=== PATIENT | female | born 1990 ===

== ENCOUNTER 2018-04-17 19:24 | Emergency (ER) | payer MEDICAID ==
[2018-04-17 19:49] VITALS: BP 125/83
--- NOTE | 2018-04-17 20:53 | UC ---
Abdominal Pain Female HPI - HPI Summary HPI Summary: INTERMITTENT PAIN IN THE RIGHT LOWER QUADRANT FOR THE PAST MONTH OR SO. PATIENT IS HERE FROM [place] PURSUING POSTDOCTORAL STUDIES AT [facility]. WHEN SHE ARRIVED HERE A COUPLE OF MONTHS AGO SHE DISCOVERED SHE WAS . IS BACK IN [place]. HAS AN APPOINTMENT TO SEE SHELLEY CALDWELL WITH [facility] NEXT WEEK. IS NOT TAKING A VITAMIN. IS CONCERNED ABOUT A HERNIA. THIS IS PATIENT'S SECOND . SHE MISCARRIED AT 16 WEEKS APPROXIMATELY ONE YEAR AGO. DENIES LOSS OF FLUID PER VAGINA. NO BLEEDING. THINKS SHE FEELS BABY MOVING ALREADY. NO URINARY SX. - History of Current Complaint Chief Complaint: UCAbdominalPain Stated Complaint: ABD PAIN,4MOS PREG Time Seen by Provider: 04/17/18 19:46 Hx Obtained From: Patient Onset/Duration: Gradual Onset, Lasting Weeks, Still Present Timing: Intermittent Episodes Lasting: Severity Initially: Moderate Severity Currently: Moderate Pain Intensity: 6 Pain Scale Used: 0-10 Numeric Radiates: No Character: Sharp Aggravating Factor(s): Other: - TOUCH Associated Signs and Symptoms: Negative: Diaphoresis, Fever, Back Pain, Constipation, Blood in Stool, Urinary Symptoms, Decreased Appetite, Vaginal Bleeding, Vaginal Discharge, Nausea, Vomiting, Diarrhea Allergies/Adverse Reactions: Allergies Allergy/AdvReac Type Severity Reaction Status Date / Time No Known Allergies Allergy Verified 04/17/18 19:49 Home Medications: Home Medications Folic Acid 1 mg PO 04/17/18 [History] PMH/Surg Hx/FS Hx/Imm Hx Other History Of: Hepatitis C - Surgical History Surgical History: Yes Surgery Procedure, Year, and Place: anal fissure - Family History Known Family History: Positive: Hypertension - Social History Alcohol Use: None Substance Use Type: None Smoking Status (MU): Never Smoked Tobacco Review of Systems Constitutional: Negative Skin: Rash Respiratory: Negative Cardiovascular: Negative Gastrointestinal: Abdominal Pain Genitourinary: Negative All Other Systems Reviewed And Are Negative: Yes Physical Exam Triage Information Reviewed: Yes Appearance: Well-Appearing, No Pain Distress, Well-Nourished Vital Signs: Initial Vital Signs Temp 97.9 F 04/17/18 19:42 Pulse 99 04/17/18 19:42 Resp 18 04/17/18 19:42 BP 125/83 04/17/18 19:42 Pulse Ox 98 04/17/18 19:42 Vital Signs Reviewed: Yes Eyes: Positive: Conjunctiva Clear ENT: Positive: Hearing grossly normal Neck: Positive: Supple Respiratory: Positive: No respiratory distress, No accessory muscle use Cardiovascular: Positive: Pulses Normal Abdomen Description: Positive: Nontender, Soft, Other: - GRAVID. NO INGUINAL HERNIA APPRECIATED. NO RLQ TENDERNESS. Musculoskeletal: Positive: ROM Intact, No Edema Neurological: Positive: Alert Psychological: Positive: Age Appropriate Behavior Skin: Positive: Other - 1.5CM AREA OF ERYTHEMA SURROUNDING INGROWN HAIR AT AREA OF TENDERNESS RIGHT LOWER ABDOMEN. PUBIC AREA IS SHAVED. Abd Pain Female Course/Dx - Differential Dx/Diagnosis Provider Diagnoses: FOLLICULITIS Discharge - Sign-Out/Discharge Documenting (check all that apply): Patient Departure - Discharge Plan Condition: Stable Disposition: HOME Prescriptions: Mupirocin 2% OINT* [Bactroban 2 % Oint*] 1 applic TOPICAL BID #1 tube [id number]/Iron/Folic/Dha [ Formula-Dha Softgel] 1 cap PO DAILY # 30 capsule Patient Education Materials: Folliculitis (ED) [facility] - If Needed Elva Caldwell CNM [Certified Nurse Custom Miller] - (KEEP YOUR APPT ON THURSDAY) Additional Instructions: YOUR PAIN SEEMS TO BE ORIGINATING FROM AN INFECTED HAIR FOLLICLE. USE THE ANTIBIOTIC OINTMENT 2-3 TIMES DAILY TOPICALLY. KEEP THE AREA COOL CLEAN AND DRY. TRY TO WEAR CLOTHES THAT DO NOT CHAFE THE AREA. DO NOT SHAVE. WILL HOLD OFF ON ORAL ANTIBIOTICS AT PRESENT. KEEP YOUR OB APPOINTMENT NEXT THURSDAY AND BE SURE TO HAVE THE AREA REEVALUATED AT THAT TIME. NO IBUPROFEN DURING . OKAY TO USE TYLENOL IF NEEDED FOR DISCOMFORT. PLEASE START TAKING A VITAMIN WITH DHA. PRESCRIPTION HAS BEEN SENT TO THE PHARMACY. YOUR URINE TODAY HAD A LITTLE BIT OF BACTERIA BUT THIS IS LIKELY A CONTAMINANT. WE WILL SEND IT FOR CULTURE AND CALL YOU IF YOU NEED TO BE TREATED. HEART TONES WERE STRONG AND STEADY. GO TO THE ED WITHOUT FAIL IF YOU HAVE ANY VAGINAL BLEEDING, LOSS OF FLUID, BABY STOPS MOVING, ABDOMINAL PAIN/CRAMPING, FEVER OR ANY OTHER CONCERNING SYMPTOMS. - Billing Disposition and Condition Condition: STABLE Disposition: Home
== END 2018-04-17 20:49 | disposition home or self-care (01) ==
LOC: UCEAST 19:24
DX: O26.899 Other specified pregnancy related conditions, unspecified trimester (principal); Z3A.00 Weeks of gestation of pregnancy not specified; L73.9 Follicular disorder, unspecified
CPT/HCPCS: 81003; 87086; 99202; G0463

== ENCOUNTER 2018-07-13 16:46 | Emergency (ER) | payer OTHER, MEDICAID ==
[2018-07-13 18:19] VITALS: BP 108/54
--- NOTE | 2018-07-13 18:42 | UC ---
Throat Pain/Nasal [place] HPI - HPI Summary HPI Summary: 27 year old female 27 weeks presents with 5 day history of left side frontal and maxillary sinus pain, sore throat, subjective fever, and chills. States yesterday she started with a non-productive cough. She also reports tender, erythematous lesions to her lower abdomen for several days. Denies ear pain or drainage, nasal discharge, chest pain, shortness of breath, abdominal pain, nausea, vomiting, dysuria, vaginal bleeding or discharge. - History of Current Complaint Chief Complaint: UCGeneralIllness Stated Complaint: SORE THROAT,FEVER,DIZZY Time Seen by Provider: 07/13/18 18:14 Hx Obtained From: Patient ?: Yes Onset/Duration: Gradual Onset, Lasting Days Pain Intensity: 0 Cough: Nonproductive Associated Signs & Symptoms: Positive: Sinus Discomfort, Fever. Negative: Dysphagia, Nasal Discharge, Vomiting - Allergies/Home Medications Allergies/Adverse Reactions: Allergies Allergy/AdvReac Type Severity Reaction Status Date / Time No Known Allergies Allergy Verified 07/13/18 17:03 Home Medications: Home Medications Acetaminophen TAB* [Tylenol TAB*] 650 mg PO Q6H PRN 07/13/18 [History Confirmed 07/13/18] PMH/Surg Hx/FS Hx/Imm Hx Endocrine History: Hypothyroidism Other History Of: Hepatitis C - Surgical History Surgical History: Yes Surgery Procedure, Year, and Place: D&C, anal fissure - Family History Known Family History: Positive: Hypertension - Social History Occupation: Student Lives: With Family Alcohol Use: None Substance Use Type: None Smoking Status (MU): Never Smoked Tobacco Review of Systems Constitutional: Fever - subjective, Chills Skin: Other - See HPI ENT: Sore Throat, Sinus Pain/Tenderness Respiratory: Cough Cardiovascular: Negative Gastrointestinal: Negative Genitourinary: Negative Is Patient Immunocompromised?: No All Other Systems Reviewed And Are Negative: Yes Physical Exam Triage Information Reviewed: Yes Appearance: Well-Appearing, No Pain Distress, Well-Nourished Vital Signs: Initial Vital Signs Temp 99.0 F 07/13/18 16:53 Pulse 112 07/13/18 16:53 Resp 18 07/13/18 16:53 BP 165/90 07/13/18 16:53 Pulse Ox 100 07/13/18 16:53 Vital Signs Reviewed: Yes Eyes: Positive: Conjunctiva Clear. Negative: Discharge ENT: Positive: Pharyngeal erythema - Mild with cobblestoning, Nasal congestion, TMs normal, Sinus tenderness - left frontal and maxillary tenderness, Uvula midline. Negative: Nasal drainage, Tonsillar swelling, Tonsillar exudate Neck: Positive: Supple, Nontender, No Lymphadenopathy Respiratory: Positive: Lungs clear, Normal breath sounds, No respiratory distress Cardiovascular: Positive: RRR, No Murmur, Tachycardia Neurological: Positive: Alert Skin: Positive: Other - 2 areas of erythema with mild induration approximately 2 cm in diameter to right and left lower abdomen. Tender to palpation. No fluctuance or drainage noted. Diagnostics - Laboratory Diagnostic Studies Completed/Ordered: rapid strep negative, POC UA normal Throat Pain/Nasal Course/Dx - Course Course Of Treatment: 27 year old female 27 weeks with 5 day history of left side frontal and maxillary sinus pain, sore throat, subjective fever, chills, and on-productive cough as well as tender, erythematous lesions to her lower abdomen. Her history and exam are consistent with an acute sinusitis. The lesions appear to be a folliculitis. Consulted with Yane Stone, [employer]CH[employer], at patient request and she agrees with treating patient with a course of Keflex for the folliculitis. Recommend symptomatic treatment for sinusitis with acetaminophen, OTC Sudafed, and saline rinses. She has appointment with OB, Dr. Kelly already scheduled for tomorrow and she is to keep this appointment. Warning symptoms reviewed with patient. Verbalizes understanding and agrees with POC. - Differential Dx/Diagnosis Provider Diagnoses: sinusitis, folliculitis - Physician Notification/Consults Discussed Patient Care With: Yane Stone Time Discussed With Above Provider: 18:45 Instructed by Provider To: Other - Safe to prescribe cephalexin. Patient to follow up with in the office tomorrow with Dr. Kelly as scheduled. Discharge - Sign-Out/Discharge Documenting (check all that apply): Patient Departure All imaging exams completed and their final reports reviewed: No Studies - Discharge Plan Condition: Stable Disposition: HOME Prescriptions: Cephalexin CAP* [Keflex 500 CAP*] 500 mg PO TID 7 Days #21 cap Patient Education Materials: Sinusitis (ED), Folliculitis (ED) Referrals: Elva Caldwell CNM [Primary Care Provider] - Debbie Kelly MD [Medical Doctor] - 1 Day (As scheduled) Additional Instructions: The rapid strep test performed in the clinic today was negative. Urinalysis was also normal. I suspect that the headache, sore throat, and cough are related to a sinus infection. The lesions on your abdomen appeared to be a skin infection. I spoke with Dr. Stone, Obstetrics, who recommends treating with an antibiotic. Start cephalexin 500 mg 1 cap every 8 hours for 7 days. Use a saline rinse kit such as Netti Pot at least twice a day to help thin the secretions and promote drainage from the sinuses. You may also safely use an over the counter decongestant called Sudafed to help with any nasal congestion. You may take acetaminophen (Tylenol) according to directions as needed for headache or pain. Be sure to drink plenty of fluids. Keep your appointment with Dr. Kelly as scheduled tomorrow. Seek immediate medical attention in the emergency room if you develop fever greater than 100.5 F, have worsening of her headache, have any visual disturbances, severe abdominal pain, persistent vomiting, abnormal vaginal bleeding, or any worsening of symptoms. - Billing Disposition and Condition Condition: STABLE Disposition: Home
== END 2018-07-13 19:05 | disposition home or self-care (01) ==
LOC: UCEAST 16:46
DX: O99.512 Diseases of the respiratory system complicating pregnancy, second trimester (principal); J32.9 Chronic sinusitis, unspecified; O99.712 Diseases of the skin and subcutaneous tissue complicating pregnancy, second trimester; L73.9 Follicular disorder, unspecified; Z3A.27 27 weeks gestation of pregnancy
CPT/HCPCS: 81003; 87651; 99212; G0463